=== PATIENT | male | born 1940 | race Asian ===

== ENCOUNTER 2017-11-04 12:35 | Inpatient (IN) | payer MEDICAID ==
[~2017-11-04] VITALS: Ht 160 cm; Wt 59.0 kg
[2017-11-04 12:45] VITALS: BP_SYST 150
[2017-11-04] MEDS ORDERED: NACL 0.9% 1,000 ML IV ONE (13:28)
[2017-11-04] MEDS ORDERED: HYDROmorphone 2 MG/ML VIAL IVP ONE (13:30)
[2017-11-04 13:57] LABS: BILIRUBIN,URINE NEGATIVE (NEGATIVE); BLOOD, URINE 2+ (NEGATIVE); CLARITY/URINE CLEAR (CLEAR); COLOR,URINE YELLOW (YELLOW); GLUCOSE,URINE 3+ (NEGATIVE); KETONES,URINE NEGATIVE (NEGATIVE); LEUKOCYTE ESTERASE ,URINE NEGATIVE (NEGATIVE); NITRITE, URINE NEGATIVE (NEGATIVE); PROTEIN URINE 1+ (NEGATIVE); UROBILINOGEN,URINE 0.2 (0.2-1.0)
[2017-11-04 14:01] LABS: BASOPHILS # (AUTO) 0.1 K/uL (0.0-0.2); BASOPHILS % (AUTO) 0.3 % (0.0-2.0); EOSINOPHILS # (AUTO) 0.1 K/uL (0.0-0.4); EOSINOPHILS % (AUTO) 0.6 % (0.0-4.0); HEMATOCRIT 41.1 % (36-54); HEMOGLOBIN 14.2 g/dL (14.0-18.0); LYMPHOCYTES # (AUTO) 1.3 K/uL (1.0-5.5); LYMPHOCYTES % (AUTO) 7.5 % (20.5-51.5); MEAN CORPUSCULAR HEMOGLOBIN 30 pg (27-31); MEAN CORPUSCULAR HGB CONC 35 % (32-36); MEAN CORPUSCULAR VOLUME 88 fL (79.0-98.0); MONOCYTES # (AUTO) 0.9 K/uL (0.0-1.0); MONOCYTES % (AUTO) 5.2 % (1.7-9.3); NEUTROPHILS # (AUTO) 14.3 K/uL (1.8-7.7); NEUTROPHILS % (AUTO) 86.4 % (40.0-70.0); PLATELET COUNT (AUTO) 274 K/uL (130-430); RED BLOOD CELL COUNT(AUTO) 4.67 MIL/uL (4.2-6.2); RED CELL DISTRIBUTION WIDTH 12.5 % (9.0-15.0); WHITE BLOOD COUNT (AUTO) 16.7 K/uL (4.8-10.8)
[2017-11-04 14:12] LABS: ANION GAP 6 (5-15); CALCIUM 8.9 mg/dL (8.4-11.0); CHLORIDE 105 mmol/L (98-107); GLUCOSE 168 mg/dL (70-99); POTASSIUM 3.7 mmol/L (3.5-5.1); SODIUM SERUM 137 mmol/L (136-145); UREA NITROGEN, BLOOD 23 mg/dL (8-21)
[2017-11-04 14:16] LABS: ALANINE AMINOTRANSFERASE 19 U/L (12-78); ALBUMIN 3.4 g/dL (3.4-4.8); ASPARTATE AMINOTRANSFERASE 15 U/L (10-37); LIPASE 177 U/L (73-393); TOTAL BILIRUBIN 0.6 mg/dL (0.0-1.0)
[2017-11-04 14:21] LABS: PROTHROMBIN TIME 10.2 SECS (9.5-12.5)
[2017-11-04 14:23] LABS: WBC,URINE 0-3 /HPF (0-3)
[2017-11-04 14:24] LABS: BACTERIA,URINE RARE /HPF (None Seen)
[2017-11-04 14:25] LABS: MUCUS,URINE None Seen /LPF (None Seen); YEAST,URINE Few /HPF (None Seen)
[2017-11-04 15:35] VITALS: BP_SYST 166
[2017-11-04 15:44] VITALS: BP_SYST 166
[2017-11-04] MEDS ORDERED: ASPI-1153 PO (15:49)
[2017-11-04] MEDS ORDERED: INSU100V9 SQ ×2 (15:49)
[2017-11-04] MEDS ORDERED: AMLO5TAB92 PO (15:49)
[2017-11-04 16:00] VITALS: BP_SYST 162
[2017-11-04] MEDS ORDERED: cloNIDine HCL 0.1 MG TABLET PO PRN (16:45)
[2017-11-04] MEDS ORDERED: IPRATROPIUM/ALBUTEROL SULFATE 3 ML AMPUL.NEB INH ONE (17:00)
[2017-11-04] MEDS ORDERED: ONDANSETRON HCL 4 MG/2 ML VIAL IVP PRN (17:30)
[2017-11-04] MEDS ORDERED: cefTRIAXone 1 GM in D5W 50 ML IV ONE (18:00)
[2017-11-04] MEDS: INSULIN ASPART 100 UNITS/ML, 10 ML VIAL (NovoLOG) SUBCUT PRN ×2 (18:20→22:00)
[2017-11-04 20:15] VITALS: BP_SYST 148
[2017-11-04] MEDS: MORPHINE 2 MG/ML INJ. SYRINGE IVP PRN (20:17)
[2017-11-04] MEDS: IPRATROPIUM/ALBUTEROL SULFATE 3 ML AMPUL.NEB INH SCH (22:59)
[2017-11-05 00:23] VITALS: BP_SYST 130
[2017-11-05 05:39] LABS: EOSINOPHILS # (AUTO) 0.1 K/uL (0.0-0.4); HEMOGLOBIN 12.2 g/dL (14.0-18.0); LYMPHOCYTES # (AUTO) 2.3 K/uL (1.0-5.5); MONOCYTES # (AUTO) 0.9 K/uL (0.0-1.0); NEUTROPHILS # (AUTO) 6.8 K/uL (1.8-7.7); NEUTROPHILS % (AUTO) 67.5 % (40.0-70.0)
[2017-11-05] MEDS: INSULIN ASPART 100 UNITS/ML, 10 ML VIAL (NovoLOG) SUBCUT PRN ×4 (06:16→20:59)
[2017-11-05 06:30] LABS: ALANINE AMINOTRANSFERASE 15 U/L (12-78); ANION GAP 7 (5-15); ASPARTATE AMINOTRANSFERASE 12 U/L (10-37); CHLORIDE 102 mmol/L (98-107); CREATININE 1.02 mg/dL (0.55-1.30); GLUCOSE 206 mg/dL (70-99); POTASSIUM 3.8 mmol/L (3.5-5.1); SODIUM SERUM 135 mmol/L (136-145); TOTAL BILIRUBIN 0.6 mg/dL (0.0-1.0); UREA NITROGEN, BLOOD 24 mg/dL (8-21)
[2017-11-05 06:36] LABS: CALCIUM 8.2 mg/dL (8.4-11.0)
[2017-11-05] MEDS: IPRATROPIUM/ALBUTEROL SULFATE 3 ML AMPUL.NEB INH SCH ×3 (07:46→23:22)
[2017-11-05 07:50] VITALS: BP_SYST 157
[2017-11-05] MEDS: FAMOTIDINE 20 MG TABLET PO SCH (08:20)
[2017-11-05] MEDS: amLODIPine BESYLATE 5 MG TABLET PO SCH (08:21)
[2017-11-05] MEDS: MORPHINE 2 MG/ML INJ. SYRINGE IVP PRN (08:21)
[2017-11-05 08:42] LABS: RED BLOOD CELL COUNT(AUTO) 3.94 MIL/uL (4.2-6.2); WHITE BLOOD COUNT (AUTO) 9.9 K/uL (4.8-10.8)
[2017-11-05 08:43] LABS: MEAN CORPUSCULAR HEMOGLOBIN 31 pg (27-31); MEAN CORPUSCULAR VOLUME 89 fL (79.0-98.0)
[2017-11-05 08:44] LABS: LYMPHOCYTES % (AUTO) 21.7 % (20.5-51.5); RED CELL DISTRIBUTION WIDTH 11.9 % (9.0-15.0)
[2017-11-05 08:45] LABS: BASOPHILS % (AUTO) 0.9 % (0.0-2.0); PLATELET COUNT (AUTO) 232 K/uL (130-430)
[2017-11-05 08:46] LABS: MEAN CORPUSCULAR HGB CONC 35 % (32-36)
[2017-11-05 08:47] LABS: MONOCYTES % (AUTO) 8.9 % (1.7-9.3)
[2017-11-05] MEDS ORDERED: HYDROmorphone 1 MG INJ. 1 MG/ML AMPUL IVP ONE (10:00)
[2017-11-05] MEDS ORDERED: HYDROmorphone 1 MG INJ. 1 MG/ML AMPUL IM PRN (11:45)
[2017-11-05 12:00] VITALS: BP_SYST 139
[2017-11-05] MEDS: HYDROmorphone 1 MG INJ. 1 MG/ML AMPUL IVP PRN ×2 (14:04→19:46)
[2017-11-05 16:10] VITALS: BP_SYST 128
[2017-11-05 19:50] VITALS: BP_SYST 143
[2017-11-05] MEDS: cefTRIAXone 1 GM in D5W 50 ML IV SCH (20:49)
[2017-11-06 00:26] VITALS: BP_SYST 139
[2017-11-06] MEDS: HYDROmorphone 1 MG INJ. 1 MG/ML AMPUL IVP PRN ×3 (04:56→17:46)
[2017-11-06 06:06] LABS: ANION GAP 8 (5-15); CALCIUM 8.3 mg/dL (8.4-11.0); CHLORIDE 99 mmol/L (98-107); CREATININE 1.05 mg/dL (0.55-1.30); GLUCOSE 224 mg/dL (70-99); POTASSIUM 3.9 mmol/L (3.5-5.1); SODIUM SERUM 133 mmol/L (136-145); UREA NITROGEN, BLOOD 26 mg/dL (8-21)
[2017-11-06 06:11] LABS: BASOPHILS # (AUTO) 0.1 K/uL (0.0-0.2); BASOPHILS % (AUTO) 0.8 % (0.0-2.0); EOSINOPHILS # (AUTO) 0.2 K/uL (0.0-0.4); EOSINOPHILS % (AUTO) 1.7 % (0.0-4.0); HEMATOCRIT 35.4 % (36-54); HEMOGLOBIN 12.2 g/dL (14.0-18.0); LYMPHOCYTES # (AUTO) 1.5 K/uL (1.0-5.5); LYMPHOCYTES % (AUTO) 12.9 % (20.5-51.5); MEAN CORPUSCULAR HEMOGLOBIN 31 pg (27-31); MEAN CORPUSCULAR HGB CONC 35 % (32-36); MEAN CORPUSCULAR VOLUME 88 fL (79.0-98.0); MONOCYTES % (AUTO) 8.5 % (1.7-9.3); NEUTROPHILS # (AUTO) 8.9 K/uL (1.8-7.7); NEUTROPHILS % (AUTO) 76.1 % (40.0-70.0); PLATELET COUNT (AUTO) 240 K/uL (130-430); RED CELL DISTRIBUTION WIDTH 11.8 % (9.0-15.0); WHITE BLOOD COUNT (AUTO) 11.7 K/uL (4.8-10.8)
[2017-11-06] MEDS: INSULIN ASPART 100 UNITS/ML, 10 ML VIAL (NovoLOG) SUBCUT PRN ×4 (06:13→22:32)
[2017-11-06 06:16] LABS: PROTHROMBIN TIME 9.7 SECS (9.5-12.5)
[2017-11-06] MEDS: IPRATROPIUM/ALBUTEROL SULFATE 3 ML AMPUL.NEB INH SCH ×3 (07:04→23:42)
[2017-11-06 07:57] VITALS: BP_SYST 157
[2017-11-06] MEDS: amLODIPine BESYLATE 5 MG TABLET PO SCH (08:37)
[2017-11-06] MEDS: FAMOTIDINE 20 MG TABLET PO SCH (08:37)
[2017-11-06] MEDS: METOPROLOL SUCCINATE 25 MG TAB.SR.24H (TOPROL XL) PO SCH (11:23)
[2017-11-06 11:25] VITALS: BP_SYST 146
[2017-11-06] MEDS ORDERED: METOPROLOL SUCCINATE 25 MG TAB.SR.24H (TOPROL XL) PO ONE (11:28)
[2017-11-06] MEDS: ACETAMINOPHEN 325 MG TABLET PO PRN ×3 (13:59→22:58)
[2017-11-06 15:43] VITALS: BP_SYST 140
[2017-11-06] MEDS: POTASSIUM CHLORIDE 10 MEQ in NACL 0.9% 1,000 ML IV SCH (17:29)
[2017-11-06 20:00] VITALS: BP_SYST 146
[2017-11-06] MEDS ORDERED: KCL 20 mEq in 100 mL (PREMIX) 100 ML IV ONE (21:12)
[2017-11-06] MEDS: FLUCONAZOLE 100 MG TABLET (DIFLUCAN) PO SCH (22:27)
[2017-11-06] MEDS: cefTRIAXone 1 GM in D5W 50 ML IV SCH (22:28)
[2017-11-07 00:19] VITALS: BP_SYST 131
[2017-11-07] MEDS: POTASSIUM CHLORIDE 10 MEQ in NACL 0.9% 1,000 ML IV SCH ×3 (03:32→20:34)
[2017-11-07] MEDS: INSULIN ASPART 100 UNITS/ML, 10 ML VIAL (NovoLOG) SUBCUT PRN ×4 (06:10→21:10)
[2017-11-07 07:05] LABS: ANION GAP 13 (5-15); CALCIUM 8.5 mg/dL (8.4-11.0); CHLORIDE 100 mmol/L (98-107); CREATININE 0.97 mg/dL (0.55-1.30); GLUCOSE 202 mg/dL (70-99); SODIUM SERUM 135 mmol/L (136-145); UREA NITROGEN, BLOOD 30 mg/dL (8-21)
[2017-11-07 07:18] LABS: ALANINE AMINOTRANSFERASE 17 U/L (12-78); ALBUMIN 2.7 g/dL (3.4-4.8); ASPARTATE AMINOTRANSFERASE 15 U/L (10-37); TOTAL BILIRUBIN 0.9 mg/dL (0.0-1.0)
[2017-11-07] MEDS: IPRATROPIUM/ALBUTEROL SULFATE 3 ML AMPUL.NEB INH SCH ×3 (07:21→23:38)
[2017-11-07 07:50] VITALS: BP_SYST 139
[2017-11-07] MEDS: FAMOTIDINE 20 MG TABLET PO SCH (08:26)
[2017-11-07] MEDS: amLODIPine BESYLATE 5 MG TABLET PO SCH (08:27)
[2017-11-07] MEDS: METOPROLOL SUCCINATE 25 MG TAB.SR.24H (TOPROL XL) PO SCH (08:27)
[2017-11-07 11:29] VITALS: BP_SYST 130
[2017-11-07 15:20] VITALS: BP_SYST 141
[2017-11-07] MEDS: ACETAMINOPHEN 325 MG TABLET PO PRN (15:27)
[2017-11-07 18:14] LABS: RED BLOOD CELL COUNT(AUTO) 3.89 MIL/uL (4.2-6.2); WHITE BLOOD COUNT (AUTO) 12.4 K/uL (4.8-10.8)
[2017-11-07 18:15] LABS: BASOPHILS % (AUTO) 0.8 % (0.0-2.0); EOSINOPHILS % (AUTO) 1.4 % (0.0-4.0); HEMATOCRIT 33.6 % (36-54); HEMOGLOBIN 11.7 g/dL (14.0-18.0); MEAN CORPUSCULAR HEMOGLOBIN 30 pg (27-31); MEAN CORPUSCULAR HGB CONC 35 % (32-36); MEAN CORPUSCULAR VOLUME 86 fL (79.0-98.0); MONOCYTES % (AUTO) 9.6 % (1.7-9.3); NEUTROPHILS % (AUTO) 74.2 % (40.0-70.0); PLATELET COUNT (AUTO) 241 K/uL (130-430); RED CELL DISTRIBUTION WIDTH 12.1 % (9.0-15.0)
[2017-11-07 18:16] LABS: BASOPHILS # (AUTO) 0.1 K/uL (0.0-0.2); EOSINOPHILS # (AUTO) 0.2 K/uL (0.0-0.4); LYMPHOCYTES # (AUTO) 1.7 K/uL (1.0-5.5); MONOCYTES # (AUTO) 1.2 K/uL (0.0-1.0); NEUTROPHILS # (AUTO) 9.2 K/uL (1.8-7.7)
[2017-11-07 20:15] VITALS: BP_SYST 128
[2017-11-07] MEDS: HYDROmorphone 1 MG INJ. 1 MG/ML AMPUL IVP PRN (20:27)
[2017-11-07] MEDS: FLUCONAZOLE 100 MG TABLET (DIFLUCAN) PO SCH (21:05)
[2017-11-07] MEDS: cefTRIAXone 1 GM in D5W 50 ML IV SCH (21:05)
[2017-11-07 23:30] VITALS: BP_SYST 136
[2017-11-08] MEDS: HYDROmorphone 1 MG INJ. 1 MG/ML AMPUL IVP PRN ×2 (04:40→10:39)
[2017-11-08] MEDS: INSULIN ASPART 100 UNITS/ML, 10 ML VIAL (NovoLOG) SUBCUT PRN ×4 (06:07→21:40)
[2017-11-08] MEDS: IPRATROPIUM/ALBUTEROL SULFATE 3 ML AMPUL.NEB INH SCH ×3 (07:15→23:00)
[2017-11-08] MEDS: POTASSIUM CHLORIDE 10 MEQ in NACL 0.9% 1,000 ML IV SCH ×2 (07:30→18:44)
[2017-11-08 08:00] VITALS: BP_SYST 157
[2017-11-08] MEDS: FAMOTIDINE 20 MG TABLET PO SCH (09:56)
[2017-11-08] MEDS: METOPROLOL SUCCINATE 25 MG TAB.SR.24H (TOPROL XL) PO SCH (09:56)
[2017-11-08] MEDS: amLODIPine BESYLATE 5 MG TABLET PO SCH (09:56)
[2017-11-08 11:24] VITALS: BP_SYST 144
[2017-11-08] MEDS ORDERED: DIPHENHYDRAMINE INJ 50 MG/ML VIAL IVP PRN (14:15)
[2017-11-08] MEDS ORDERED: KETOROLAC TROMETHAMINE 15 MG VIAL IVP ONE (14:30)
[2017-11-08 15:10] VITALS: BP_SYST 140
[2017-11-08] MEDS: KETOROLAC TROMETHAMINE 15 MG VIAL IVP SCH (17:06)
[2017-11-08 20:00] VITALS: BP_SYST 152
[2017-11-08] MEDS: FLUCONAZOLE 100 MG TABLET (DIFLUCAN) PO SCH (21:32)
[2017-11-08] MEDS: cefTRIAXone 1 GM in D5W 50 ML IV SCH (21:33)
[2017-11-09] MEDS: KETOROLAC TROMETHAMINE 15 MG VIAL IVP SCH ×3 (00:06→12:53)
[2017-11-09 00:33] VITALS: BP_SYST 133
[2017-11-09 00:45] VITALS: BP_SYST 133
[2017-11-09] MEDS: POTASSIUM CHLORIDE 10 MEQ in NACL 0.9% 1,000 ML IV SCH ×2 (06:07→16:10)
[2017-11-09] MEDS: INSULIN ASPART 100 UNITS/ML, 10 ML VIAL (NovoLOG) SUBCUT PRN ×3 (06:16→17:10)
[2017-11-09] MEDS: IPRATROPIUM/ALBUTEROL SULFATE 3 ML AMPUL.NEB INH SCH ×2 (07:33→15:59)
[2017-11-09 08:20] VITALS: BP_SYST 118
[2017-11-09] MEDS: FAMOTIDINE 20 MG TABLET PO SCH (08:41)
[2017-11-09] MEDS: METOPROLOL SUCCINATE 25 MG TAB.SR.24H (TOPROL XL) PO SCH (08:41)
[2017-11-09] MEDS: amLODIPine BESYLATE 5 MG TABLET PO SCH (08:41)
[2017-11-09 12:55] VITALS: BP_SYST 144
[2017-11-09 15:08] VITALS: BP_SYST 136
== END 2017-11-09 17:50 | disposition home or self-care (01) | DRG 342 ==
LOC: SED 12:35 → STU 14:41 → SMU 11-07 16:31
PROVIDERS: ADMIT Internal Medicine; ATTEND Internal Medicine
PROC: 2W3BX1Z Immobilization of Left Upper Arm using Splint (ICD-10-PCS; principal; 2017-11-09)
DX: S42.292A Other displaced fracture of upper end of left humerus, initial encounter for closed fracture (principal); S72.115A Nondisplaced fracture of greater trochanter of left femur, initial encounter for closed fracture; E11.9 Type 2 diabetes mellitus without complications; I10 Essential (primary) hypertension; B37.9 Candidiasis, unspecified; D72.829 Elevated white blood cell count, unspecified; I25.10 Atherosclerotic heart disease of native coronary artery without angina pectoris; R79.89 Other specified abnormal findings of blood chemistry; R00.0 Tachycardia, unspecified; W10.8XXA Fall (on) (from) other stairs and steps, initial encounter; Y93.89 Activity, other specified; Y92.098 Other place in other non-institutional residence as the place of occurrence of the external cause; Y99.8 Other external cause status; Z86.73 Personal history of transient ischemic attack (TIA), and cerebral infarction without residual deficits; Z87.891 Personal history of nicotine dependence; Z79.82 Long term (current) use of aspirin; Z79.4 Long term (current) use of insulin; Z82.3 Family history of stroke
CPT/HCPCS: 36415; 71045; 72192-TC; 73030; 73502; 80048; 80053; 81000-TC; 82962; 83690-TC; 85025; 85610-TC; 85730-TC; 87040-TC; 87086; 93005; 93306; 94640; 96361; 96374; 97116-GP; 99285; J0696; J1170; J1200; J1815; J1885; J2270; J3480; J7030; J7060; J7620